=== PATIENT | female | born 1940 | race Asian ===

== ENCOUNTER 2022-11-15 09:50 | Emergency (ER) | payer MEDICARE, MEDICAID ==
[~2022-11-15] VITALS: Ht 152.4 cm; Wt 59.1 kg
[2022-11-15] MEDS ORDERED: CYAN250014 PO (09:57)
[2022-11-15] MEDS ORDERED: FURO20 PO (09:57)
[2022-11-15] MEDS ORDERED: ATOR20TA PO (09:57)
[2022-11-15] MEDS ORDERED: MULT9LIQ7 PO (09:57)
[2022-11-15] MEDS ORDERED: METO50 PO (09:57)
[2022-11-15] MEDS ORDERED: FOLI-130 PO (09:57)
[2022-11-15] MEDS ORDERED: MIRT-89 PO (09:57)
[2022-11-15] MEDS ORDERED: LEVO50 PO (09:57)
[2022-11-15] MEDS ORDERED: BENZ-227 PO (09:57)
[2022-11-15] MEDS ORDERED: WARF2TAB10 PO (09:57)
[2022-11-15 10:31] LABS: BASOPHILS % (AUTO) 0.3 % (0.0-2.0); EOSINOPHILS % (AUTO) 0.6 % (1.0-6.0); HEMATOCRIT 34.1 % (36-46); HEMOGLOBIN 10.8 g/dL (12.0-16.0); LYMPHOCYTES # (AUTO) 0.4 K/uL (1.0-4.8); LYMPHOCYTES % (AUTO) 7.7 % (22.0-44.0); MEAN CORPUSCULAR HEMOGLOBIN 30.8 pg (26.0-34.0); MEAN CORPUSCULAR HGB CONC 31.6 G/dL (31.0-37.0); MEAN CORPUSCULAR VOLUME 98 fL (80-100); MONOCYTES # (AUTO) 0.4 K/uL (0.1-1.0); MONOCYTES % (AUTO) 8.1 % (2.0-9.0); NEUTROPHILS # (AUTO) 4.2 K/uL (1.8-7.7); NEUTROPHILS % (AUTO) 83.3 % (40.0-70.0); PLATELET COUNT (AUTO) 193 K/uL (150-450); RED CELL DISTRIBUTION WIDTH 17.5 % (11.5-14.5)
[2022-11-15 10:43] LABS: ANION GAP 6 mmol/L (8-16); CALCIUM, TOTAL 8.7 mg/dL (8.8-10.5); CARBON DIOXIDE 28 mmol/L (22-29); CHLORIDE 99 mmol/L (98-107); CREATININE 1.02 mg/dL (0.60-1.30); GLOMERULAR FILTR. RATE CALC 52 mL/min (>60); GLUCOSE,RANDOM 225 mg/dL (70-110); POTASSIUM 4.1 mmol/L (3.5-5.1); SODIUM SERUM 133 mmol/L (136-145)
[2022-11-15 10:53] LABS: D-DIMER 1.63 mg/L FEU (0.00-0.50); INR 3.2 (0.9-1.1); PROTHROMBIN TIME 30.7 SEC (9.4-11.6)
[2022-11-15 10:56] LABS: B-TYPE NATRIURETIC PEPTIDE 1830 pg/mL (0-100)
[2022-11-15 11:06] LABS: COVID AG,FIA SOURCE NASAL SWAB
[2022-11-15 11:08] LABS: ALANINE AMINOTRANSFERASE 29 U/L (12-78); ALKALINE PHOSPHATASE 133 U/L (46-116); ASPARTATE AMINOTRANSFERASE 40 U/L (15-37); BILIRUBIN,TOTAL 0.7 mg/dL (0.1-1.0); CREATINE KINASE, TOTAL ONLY 96 U/L (26-192); TOTAL PROTEIN, SERUM 7.4 g/dL (6.4-8.2)
[2022-11-15 11:28] LABS: INFLUENZA TYPE A NEGATIVE FOR TYPE A (NEGATIVE); INFLUENZA TYPE B NEGATIVE FOR TYPE B (NEGATIVE)
[2022-11-15] MEDS ORDERED: FUROSEMIDE 40 MG/4 ML VIAL IVP ONE (11:30)
[2022-11-15] MEDS ORDERED: [UNRECOGNIZED DRUG - CODE] TP (11:31)
[2022-11-15] MEDS ORDERED: DIGO125T84 PO (11:31)
[2022-11-15] MEDS ORDERED: METF-1211 PO (11:31)
[2022-11-15] MEDS ORDERED: MULT-248 PO (11:31)
[2022-11-15] MEDS ORDERED: FLUT1DIS6 IH (11:31)
[2022-11-15] MEDS ORDERED: APIX2.5T PO (11:31)
[2022-11-15] MEDS ORDERED: MEGE400O5 PO (11:31)
[2022-11-15] MEDS ORDERED: ASPIRIN 81 MG CHEWABLE TABLET PO ONE (12:45)
[2022-11-15 12:57] VITALS: TEMP 98.5
[2022-11-15] MEDS ORDERED: DILTIAZEM HCL 5 MG/ML 5 ML VIAL IVP ONE (13:00)
[2022-11-15 14:37] VITALS: BP 106/58; PULSE 82; RESP 20
== END 2022-11-15 16:28 | disposition short-term general hospital (02) ==
LOC: EMS 09:51
DX: I48.91 Unspecified atrial fibrillation (principal); J90 Pleural effusion, not elsewhere classified; I11.0 Hypertensive heart disease with heart failure; I50.9 Heart failure, unspecified; F41.9 Anxiety disorder, unspecified; E78.00 Pure hypercholesterolemia, unspecified; Z85.118 Personal history of other malignant neoplasm of bronchus and lung; Z20.822 Contact with and (suspected) exposure to COVID-19
CPT/HCPCS: 99291; 96374; 71045; 96375; 87426; 80053; 82550; 83605; 83880; 84484; 85025; 85379; 85610; 85730; 87040; 87804; 36415; 93005; 84145; J3490; J1940